=== PATIENT | female | born 1975 | race African-American/Black ===

== ENCOUNTER 2024-10-24 08:07 | Emergency (ER) | payer SELFPAY ==
[~2024-10-24] VITALS: Ht 175.3 cm; Wt 100.0 kg
[2024-10-24 08:17] VITALS: O2SAT 99
[2024-10-24 08:23] VITALS: BP 125/72; PULSE 90; RESP 18; TEMP 37.2; O2SAT 100
== END 2024-10-24 09:34 | disposition home or self-care (01) ==
LOC: ER 08:07
DX: T16.1XXA Foreign body in right ear, initial encounter (principal); Z88.2 Allergy status to sulfonamides; W44.F9XA Other object of natural or organic material, entering into or through a natural orifice, initial encounter; Y93.89 Activity, other specified; Y92.89 Other specified places as the place of occurrence of the external cause; Y99.8 Other external cause status
CPT/HCPCS: 69200; 99284